=== PATIENT | male | born 1975 ===

== ENCOUNTER 2016-08-12 23:18 | Inpatient (IN) | payer MEDICAID ==
[~2016-08-12] VITALS: Ht 172.7 cm; Wt 66.4 kg
[~2016-08-12 23:18] MED LIST: [UNRECOGNIZED DRUG - CODE] SL
[2016-08-13 00:52] VITALS: PULSE 76
[2016-08-13 01:00] VITALS: BP 110/69; PULSE 71; RESP 17; O2SAT 99
[2016-08-13] MEDS ORDERED: METH5TAB3 PO (01:34)
[2016-08-13] MEDS ORDERED: Alum-Mag Hydrox-Simeth 30 mL Suspension PO PRN (02:30)
[2016-08-13] MEDS ORDERED: Polyethylene Glycol (PEG) 17 Gm Powder PO PRN (02:30)
[2016-08-13] MEDS ORDERED: Ondansetron 2 mg/mL 2 mL Inj IVPUSH PRN (02:30)
--- NOTE | 2016-08-13 02:37 | PCM.HPMED ---
Subjective Date of Service Aug 13, 2016 Primary Provider: Admitting Physician: Demetria Pemberton DO Primary Care Physician: Other,Physician Attending Physician: Demetria Pemberton DO Admit Status: Direct Admit Chief Complaint: right lower extremity pain History of Present Illness: 41yoM with past medical history of IVDU transferred from [facility] for further evaluation of right lower extremity cellulitis and endocarditis. Patient has history of injection into his right leg and was initially seen at [facility] for evaluation or right lower extremity erythema, edema, and pain. His symptoms began around 6/3 and patient notes that pain started in his ankle and spread gradually. Patient was found to have a murmur on initial exam concerning for endocarditis. He was started on ceftriaxone and vancomycin. Blood cultures were positive for gram positive cocci. Transthoracic ECHO was completed with results suggestive of endocarditis. Patient left AMA from [place] but was called and notified of a "heart infection" and was told to return to the hospital for further evaluation and treatment. Patient returned to [facility] ED. Transfer was requested to [facility] for assistance from infectious disease. Dr. Vo, marketing technology coordinator [facility], was consulted and recommended transfer to [facility] for further evaluation of endocarditis and transfer to [facility] for urgent evaluation of valve replacement if patient developed clinical signs of heart failure or septic emboli. (Dr. Vo is available 08/13 via phone for further information. Patient may be required to go to [facility] for valve replacement evaluation following initiation of antibiotics) Labs are reviewed from paper chart records available following patient transfer. Labs includ WBC 6.1, Hgb 8.9, platelet 313, glucose 131, creatinine 0.8, potassium 3.7, CO2 28. Patient was given IV vancomycin x1(1.5g) and ceftriaxone x1 at [place]. Review of Systems: complete review of systems obtained. positive as per HPI otherwise negative Allergies Coded Allergies: Codeine (Verified Allergy, Severe, 10/02/11) Home Medications Methadone [facility] IVDU Cellulitis Positive blood culture Surgical History None Family History Mother: diabetes Sister: drug abuse Maternal aunt: breast CA Maternal uncle: lung CA Social History Hx Alcohol Use: Yes Hx Substance Use: Yes (heroin) Hx Tobacco Use: Yes ("10 cigarettes a day") Exam Vital Signs Vital Sign - Last Date Time Temp Pulse Resp B/P Pulse Ox O2 Delivery O2 Flow Rate FiO2 08/13/16 01:00 37.0 71 17 110/69 99 Room Air Exam General: Alert, Oriented X3, Cooperative, No acute Distress, cachectic Eyes: PERRLA, Scleral Anicteric Mouth: Mouth Normal, Mucous Membranes Moist/[place] Neck: Supple, no Thyromegaly, trachea central. Chest & Lungs: fine crackles bases bilateral, no wheeze, good respiratory effort Cardiovascular: 4/6 holosystolic murmur best heard in the tricuspid region. Regular Rate/Rhythm, (No JVD, no peripheral edema) Pulses: Radial (present and equal), Dorsalis Pedi (present and equal) Abdomen: Soft, tender lower quadrants and suprapubic, no rebound, Non-distended , hypoactive bowel tones. Musculoskeletal: Unremarkable. Normal range of motion, no swollen or erythematous joints Extremities: 3-4+ pitting edema right lower extremity with mild erythema, no cyanosis, no clubbing Skin: as per extremity exam above, multiple tattoos Neurological: Grossly neurologically intact, Normal Speech, Sensation Intact Lymphatic: Lymph nodes Cervical and Axillary not palpable Psych: normal affect Lab and Diagnostics Cardiac Echo Impressions Completed 08/12 Summary Normal left ventricular size and function ef 55-60% normal diastolic filling patter normal right ventricular size and function mild-moderate left atrial dilation irregular shaped echodensity noted on both mitral leaflets, highly suggestive of vegetations. Bileaflet mitral valve prolapse with severe eccentric mitral regurg mild tricuspid regurgitation estimated right ventricular systolic pressure 38 Assessment & Plan 41yoM with past medical history of IVDU transferred from [facility] for further evaluation of right lower extremity cellulitis and endocarditis. Right lower extremity cellulitis, acute, POA -onset 08/04, given vancomycin and ceftriaxone at [place] and [place] -subjective improvement since abx initiation -continue vancomycin (pharmacy to dose), continue ceftrixone Endocarditis, acute, POA -new murmur found at [facility] -reported positive blood cultures however results aren't available on admission , request records -TTE report reviewed and in chart. Results as above. 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 -monitor for withdrawal -clonidine PRN, lorazepam PRN -continue patients home methadone dose, call to confirm dosing in am ( [place] [facility]) Normocytic anemia, unknown chronicity, POA -continue to monitor with daily labs Tobacco dependence, chronic -discussed smoking cessation -nicotine patch made available upon request Cachexia, subacute -patient with weight loss over the past month -unclear etiology -obtain records from [facility] regarding HIV / hep C testing Patient is admitted under inpatient status and will require admission >2 midnights Pain Evaluation: Adequate Pain Control VTE Prophylaxis: Sub-Q Heparin (Unfractionated) Resuscitation Status: CPR: Attempt Resuscitation Demetria Pemberton DO Aug 13, 2016 02:37
[2016-08-13 03:18] LABS: BASOPHILS % (AUTO) 0.5 % (0-3); EOSINOPHILS % (AUTO) 2.8 % (0-5); MONOCYTES % (AUTO) 11.2 % (4-12); Mean Corpuscular Hemoglobin 27.5 pg (27.0-35.0); Mean Corpuscular Volume 86.9 fL (81-100); NEUTROPHILS % (AUTO) 48.8 % (40-74); Platelet Count 298 bil/L (150-400)
[2016-08-13] MEDS ORDERED: cloNIDine 0.1 mg Tablet PO PRN (03:20)
[2016-08-13 03:37] LABS: INR 0.94 ratio
[2016-08-13] MEDS: Vancomycin Dose per Pharmacist XX SCH ×2 (04:05→08:15)
--- NOTE | 2016-08-13 04:13 | NUR ---
Admit note: Received a phone reports from [facility] around midnight, Pt. arrived to the unit approx 0030 via gurney accompanied by ET, ambulatory with steady gait, oriented to RM and call light, calm and pleasant to staff, Pt. on tele SR 70s per semiconductor processing technician, vitals taken and wnl, afebrile, hourly rounds, call light in reach at all times, will continue to monitor.
[2016-08-13] MEDS ORDERED: Vancomycin Inj 1,000 MG in IV Premix 1 EACH IV SCH (04:25)
[2016-08-13] MEDS ORDERED: 0.9% Sodium Chloride 250 ML ONE (04:32)
--- NOTE | 2016-08-13 04:57 | PCM.CONPHA ---
Subjective Date of Service: Aug 13, 2016 Requesting Provider: Demetria Pemberton DO right lower extremity pain History of Present Illness lower extremity cellulitis and endocarditis Reason for Pharmacy Consult: Vancomycin Dosing Objective Assessment/Plan Assessment/Plan A/ - 41 y/o male patient with hx of IVDU transferred in late 08/12 from [facility] needed Vancomycin to be continued to treat lower extremity cellulitis and endocarditis. Please see H&P for completeness. - Afebrile, WBC: 6.3, lab result at [facility] on 08/04 showed positive for Gram positive cocci - Received Vancomycin loading dose of 1500mg iv and ceftriaxone at [facility] before transferred to [facility] - Wt: 66.4kg, ht: 173 cm, SCr: 0.7 mg/dL, estimated clearance~130 ml/min, t1/2 ~ 6hrs P/ - Continue Vancomycin 1000mg iv q8h. Trough level ordered before 4th dose @ 1999 today. Pharmacy will continue to follow and make necessary adjustment Thank you for consulting clinical pharmacy in the care of this patient Hilario Allen Aug 13, 2016 04:57
[2016-08-13 05:27] VITALS: BP 115/76; PULSE 74; RESP 17; O2SAT 99
[2016-08-13] MEDS ORDERED: Heparin 5,000 Unit/mL Inj SUBQ SCH (08:30)
[2016-08-13 09:39] VITALS: BP 108/66; PULSE 65; RESP 16; O2SAT 98
[2016-08-13] MEDS ORDERED: Methadone 10 mg/mL 30 mL Oral Concentration PO SCH (11:15)
--- NOTE | 2016-08-13 11:46 | NUR ---
Social Work-AMA SW updated by charge poster that pt has left AMA. Nikkie Glez MSW
--- NOTE | 2016-08-13 12:09 | NUR ---
AMA Patient left AMA at 1135. Patient became agitated after not getting his methadone this morning. Patient has not gotten his methadone dose b/c MD wanted to verify the dose with his methadone clinic. Primary RN explained to the patient that we are verifying dose and will get his dose as soon as pharmacy gets verification. The patient at this point still insisted on leaving the hospital. Primary RN notified the MD and Charge Nurse printed the AMA paperwork. Primary nurse explained to the patient the risk involved in leaving AMA to include sepsis, increased pain and . Patient insisted on leaving. Patient signed the AMA paper work. Primary RN dc'd IV intact. Patient left floor on his own without any signs of distress.
[2016-08-13] MEDS ORDERED: Vancomycin Serum Trough XX ONE (20:00)
[2016-08-13] MEDS ORDERED: cefTRIAXone Inj 2,000 MG in Dextrose 5% Minibag Plus 50 ML IV SCH (21:00)
--- NOTE | 2016-08-14 00:23 | PCM.DC.MED ---
Discharge Summary Date of Service Aug 13, 2016 Dates of Hospitalization Date of Hospital Admission Aug 13, 2016 at 00:34 Date of Discharge: Aug 13, 2016 Providers: Admitting Physician: Demetria Pemberton DO Primary Care Physician: Other,Physician Attending Physician: Demetria Pemberton DO Procedures Cardiac Echo Impression Completed 08/12 Summary Normal left ventricular size and function ef 55-60% normal diastolic filling patter normal right ventricular size and function mild-moderate left atrial dilation irregular shaped echodensity noted on both mitral leaflets, highly suggestive of vegetations. Bileaflet mitral valve prolapse with severe eccentric mitral regurg mild tricuspid regurgitation estimated right ventricular systolic pressure 38 Brief History 41yoM with past medical history of IVDU transferred from [facility] for further evaluation of right lower extremity cellulitis and endocarditis. Patient has history of injection into his right leg and was initially seen at [facility] for evaluation or right lower extremity erythema, edema, and pain. His symptoms began around 6/3 and patient notes that pain started in his ankle and spread gradually. Patient was found to have a murmur on initial exam concerning for endocarditis. He was started on ceftriaxone and vancomycin. Blood cultures were positive for gram positive cocci. Transthoracic ECHO was completed with results suggestive of endocarditis. Patient left AMA from [place] but was called and notified of a "heart infection" and was told to return to the hospital for further evaluation and treatment. Patient returned to [facility] ED. Transfer was requested to [facility] for assistance from infectious disease. Dr. Vo, die casting supervisor [facility], was consulted and recommended transfer to [facility] for further evaluation of endocarditis and transfer to [facility] for urgent evaluation of valve replacement if patient developed clinical signs of heart failure or septic emboli. (Dr. Vo is available 08/13 via phone for further information. Patient may be required to go to [facility] for valve replacement evaluation following initiation of antibiotics) Labs are reviewed from paper chart records available following patient transfer. Labs includ WBC 6.1, Hgb 8.9, platelet 313, glucose 131, creatinine 0.8, potassium 3.7, CO2 28. Patient was given IV vancomycin x1(1.5g) and ceftriaxone x1 at [place]. She was admitted directly to the hospitalist service at [facility] for further evaluation and treatment. Hospital Course 41yoM with past medical history of IVDU transferred from [facility] for further evaluation of right lower extremity cellulitis and endocarditis. Right lower extremity cellulitis, acute, POA -onset 08/04, given vancomycin and ceftriaxone at [place] and [place] -subjective improvement since abx initiation -continue vancomycin (pharmacy to dose), continue ceftrixone Endocarditis, acute, POA -new murmur found at [facility] -reported positive blood cultures however results aren't available on admission , request records -TTE report reviewed and in chart. Results as above. Contact [facility] to push images -Cardiology consult, recs appreciated -Infectious disease consult, recs appreciated -continue vanc and ceftriaxone as above IVDU, chronic, POA -patient with history of heroin and methamphetamine use -monitor for withdrawal -clonidine PRN, lorazepam PRN -continue patients home methadone dose, call to confirm dosing in am ( [facility]) Normocytic anemia, unknown chronicity, POA -continue to monitor with daily labs Tobacco dependence, chronic -discussed smoking cessation -nicotine patch made available upon request Cachexia, subacute -patient with weight loss over the past month -unclear etiology -obtain records from [facility] regarding HIV / hep C testing Disposition: After I awakened the patient from a sound sleep he has for his methadone medication and I informed him that I would have pharmacy confirm his dose at the [place] [facility] where he states that he gets his methadone. While waiting for the pharmacist to verify his methadone dose the patient made some phone calls and left the hospital AGAINST MEDICAL ADVICE despite being told that if he leaves he is at a very high risk of due to his significant valvular heart infection and cellulitis. He signed the AGAINST MEDICAL ADVICE papers despite this risk and left the hospital despite this high risk of that was explained to him. Exam Vital Signs (Last) Date Time Temp Pulse Resp B/P Pulse Ox O2 Delivery O2 Flow Rate FiO2 08/13/16 09:39 36.4 65 16 108/66 98 Room Air Exam General: Patient was sound asleep when I entered the room and was arousable he was in no distress. She was cachectic and had a large collection of tattoos. HEENT: Head is atraumatic and normocephalic. Eyes: Pupils are equally round and reactive to light and accommodation. Extraocular muscles are intact. Sclera are white, anicteric. Subconjunctival mucosa is pink. Ears and nose are unremarkable. Oropharynx: There is no mucosal lesions, there is no thrush, there is no pharyngitis. Neck: Is supple, there are no nodes, or masses or tenderness. Chest: Is clear to auscultation and percussion. There are no rales, rhonchi, wheezes or rubs. Heart: Rate, rhythm is regular. There was a very loud systolic ejection murmur heard best at the left sternal border radiating to the apex. Abdomen: Good bowel sounds are present. Abdomen is soft, nontender, no organomegaly or masses were appreciated. Extremities: Are symmetrical and well perfused. There was some edema of the right lower extremity with cellulitis of the right lower extremity. The area was demarcated with a pen. Neurologic: There are no focal neurological deficits. Cranial nerves II through XII are intact. There are no sensory or motor deficits. Psychiatric: Patients mood is calm and shows no sign of agitation. Genital: Deferred Rectal: Deferred Test 08/13/16 03:06 White Blood Count 6.3th/mm3 (3.8-10.1) Red Blood Count 3.27mil/mm3 (4.40-5.80) Hemoglobin 9.0g/dL (13.8-17.2) Hematocrit 28.4% (41.0-50.0) Mean Corpuscular Volume 86.9fL (81-100) Mean Corpuscular Hemoglobin 27.5pg (27.0-35.0) Mean Corpuscular Hemoglobin Concent 31.7% (32.0-37.0) Red Cell Distribution Width 12.7% (12.3-15.4) Platelet Count 298bil/L (150-400) Neutrophils (%) (Auto) 48.8% (40-74) Lymphocytes (%) (Auto) 36.5% (14-46) Monocytes (%) (Auto) 11.2% (4-12) Eosinophils (%) (Auto) 2.8% (0-5) Basophils (%) (Auto) 0.5% (0-3) Prothrombin Time 10.0sec (8.1-12.5) Prothromb Time International Ratio 0.94ratio Sodium Level 139mEq/L (134-144) Potassium Level 4.1mEq/L (3.5-5.2) Chloride Level 105mEq/L (97-108) Carbon Dioxide Level 24mmol/L (18-29) Blood Urea Nitrogen 9mg/dL (6-24) Creatinine 0.70mg/dL (0.76-1.27) Estimat Glomerular Filtration Rate 132mL/min (>59) Glucose Level 109mg/dL (60-99) Calcium Level 8.4mg/dL (8.5-10.1) Total Bilirubin 0.2mg/dL (0.0-1.2) Aspartate Amino Transf (AST/SGOT) 18U/L (0-50) Alanine Aminotransferase (ALT/SGPT) 15U/L (0-44) Alkaline Phosphatase 148U/L (25-150) Total Protein 6.6g/dL (6.4-8.4) Albumin 2.9g/dL (3.4-5.0) Discharge Medications Discharge Medications Methadone (Methadone) 5 Mg Tablet 105 MG PO QAM (Reported) Followup Plan Disposition: Patient left the hospital AGAINST MEDICAL ADVICE despite after being explained that he risk by leaving the hospital. Time spent The patient left the hospital AGAINST MEDICAL ADVICE despite being explained that he is risking by leaving the hospital. Lc Salas MD Aug 14, 2016 00:23
== END 2016-08-13 11:34 | disposition left against medical advice (07) | DRG 289 ==
LOC: MPC 08-13 00:34 → UNDOADMIN 08-13 01:25
PROVIDERS: ADMIT Internal Medicine; ATTEND Internal Medicine
DX: I33.9 Acute and subacute endocarditis, unspecified (principal); L03.115 Cellulitis of right lower limb; R64 Cachexia; F17.200 Nicotine dependence, unspecified, uncomplicated; F11.99 Opioid use, unspecified with unspecified opioid-induced disorder; Z68.22 Body mass index [BMI] 22.0-22.9, adult